=== PATIENT | male | born 2000 | race Caucasian/White ===

== ENCOUNTER 2020-03-08 15:37 | Emergency (ER) | payer SELFPAY ==
[~2020-03-08] VITALS: Ht 177.8 cm; Wt 77.3 kg
[2020-03-08 15:40] VITALS: Ht 177.8 cm; Wt 77.3 kg
[2020-03-08] MEDS ORDERED: HYDROCODON-ACE1 EA10 PO (17:01)
[2020-03-08] MEDS ORDERED: KEFLEX500 MG PO (17:01)
[2020-03-08 17:08] VITALS: BP 129/74
== END 2020-03-08 17:19 | disposition home or self-care (01) ==
LOC: D.ER 15:37
DX: S01.21XA Laceration without foreign body of nose, initial encounter (principal); V86.56XA Driver of dirt bike or motor/cross bike injured in nontraffic accident, initial encounter; Y93.9 Activity, unspecified; Y92.9 Unspecified place or not applicable; S89.91XA Unspecified injury of right lower leg, initial encounter